=== PATIENT | female | born 2000 | race Caucasian/White ===

== ENCOUNTER 2022-12-23 11:02 | Emergency (ER) | payer SELFPAY ==
[2022-12-23] MEDS ORDERED: ACETAMINOPHEN 500 MG TAB ONE (11:57)
[2022-12-23 12:02] LABS: Absolute Lymphocytes (CBC) 1.5 K/uL (0.7-4.9); Lymphocytes % 31.1 % (15.3-44.8); MCV 87.6 fL (80-100); MPV 8.5 fL (7.6-11.3); RBC Red Blood Cell Count 4.46 M/uL (3.86-4.86)
[2022-12-23 12:10] LABS: Specific Gravity 1.018 (1.005-1.030); Urine Bacteria 20-50 /HPF (<20); Urine Bilirubin NEGATIVE (Negative); Urine Blood 2+ (Negative); Urine Color Yellow (Yellow); Urine Glucose NEGATIVE (Negative); Urine Mucus 4+ /HPF (None Seen); Urine Protein TRACE (Negative); Urine RBC <5 /HPF (None Seen); Urine Urobilinogen Normal (Normal); Urine pH 5.5 (5.0-7.0)
[2022-12-23 12:12] LABS: Urine Clarity Cloudy (Clear)
[2022-12-23 12:21] LABS: BUN Blood Urea Nitrogen 8 mg/dL (7-18); Bicarbonate 24 mEq/L (21-32); Glomerular Filtration Rate 89 ml/min (=/>90); Glucose Level 93 mg/dL (74-106); HCG, Quantitative < 1 mIU/mL (1-3); Potassium 3.8 mEq/L (3.5-5.1); Sodium Level 141 mEq/L (136-145)
--- NOTE | 2022-12-23 13:18 | RAD REPORT ---
EXAM DESCRIPTION: US - Transvaginal OB - 12/23/2022 1:08 pm CLINICAL HISTORY: VAGINAL BLEEDING COMPARISON: No comparisons FINDINGS: Small ovoid hypoechoic structure present within the lower uterine segment measuring 4 mill imeters x 2 millimeters x 2 millimeters. The endometrium measures 4 millimeters. The uterus measures 6.3 x 2.9 x 5.2 cm. The right ovary measures 2.8 x 1.4 x 1.8 cm with volume of 3.7 cc. Left ovary was not visualized and may have been obscured by bowel gas. Vascular flow in the right ovary. IMPRESSION: No normal IUP identified. Small cystic structure in the lower uterine segment could repr esent an abnormal gestational sac in the setting of a failed first trimester . Vascular flow in the right ovary. Left ovary not visualized.
--- NOTE | 2022-12-23 13:37 | EDPHYS ---
Physician Documentation [facility] Name: Lexy Sarkar Age: 22 yrs Sex: Female : 2000 Arrival Date: 12/23/2022 Time: 11:02 Bed 16 Private MD: ED Physician Howie Quinones HPI: 12/23 11:26 This 22 yrs old Female presents to ER via Wheelchair with complaints of OB Problem (> rt 20 Weeks), Vaginal Bleeding. 11:39 Patient is a G1, P0 currently reportedly 6 weeks by dates. She states that she rt had vaginal bleeding starting today, less than a period. She reports a spotting currently. She reports a crampy lower abdominal pain. Denies other acute complaints at this time. She has not had ultrasound yet for this . Symptoms are moderate severity, no other aggravating or alleviating factors. 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 - Social history:: Smoking status: Reported history of juuling and/or vaping. - Family history:: not pertinent. ROS: 11:39 Constitutional: Negative for fever, chills, and weight loss, Neck: Negative for injury, rt pain, and swelling, Cardiovascular: Negative for chest pain, palpitations, and edema, Respiratory: Negative for shortness of breath, cough, wheezing, and pleuritic chest pain, Abdomen/GI: Negative for abdominal pain, nausea, vomiting, diarrhea, and constipation, MS/Extremity: Negative for injury and deformity, Skin: Negative for injury, rash, and discoloration, Neuro: Negative for headache, weakness, numbness, tingling, and seizure, Psych: Negative for depression, anxiety, suicide ideation, homicidal ideation, and hallucinations. 11:39 : Positive for vaginal bleeding, Negative for difficulty urinating. Exam: 11:33 Constitutional: This is a well developed, well nourished patient who is awake, alert, rt and in no acute distress. Head/Face: Normocephalic, atraumatic. Neck: Trachea midline, no thyromegaly or masses palpated, and no cervical lymphadenopathy. Supple, full range of motion without nuchal rigidity, or vertebral point tenderness. No Meningismus. Chest/axilla: Normal chest wall appearance and motion. Nontender with no deformity. No lesions are appreciated. Cardiovascular: Regular rate and rhythm with a normal S1 and S2. No gallops, murmurs, or rubs. Normal PMI, no JVD. No pulse deficits. Respiratory: Lungs have equal breath sounds bilaterally, clear to auscultation and percussion. No rales, rhonchi or wheezes noted. No increased work of breathing, no retractions or nasal flaring. Abdomen/GI: Soft, non-tender, with normal bowel sounds. No distension or tympany. No guarding or rebound. No evidence of tenderness throughout. Skin: Warm, dry with normal turgor. Normal color with no rashes, no lesions, and no evidence of cellulitis. MS/ Extremity: Pulses equal, no cyanosis. Neurovascular intact. Full, normal range of motion. Neuro: Awake and alert, GCS 15, oriented to person, place, time, and situation. Cranial nerves II-XII grossly intact. Motor strength 5/5 in all extremities. Sensory grossly intact. Cerebellar exam normal. Normal gait. Psych: Awake, alert, with orientation to person, place and time. Behavior, mood, and affect are within normal limits. Vital Signs: 11:11 BP 114 / 71; Pulse 74; Resp 18 S; Temp 97.1(TE); Pulse Ox 98% on R/A; Weight 46.72 kg aa5 (R); Height 5 ft. 0 in. (R); 12:00 BP 117 / 68; Pulse 57; Resp 18; Pulse Ox 100% on R/A; eh3 13:00 BP 126 / 74; Pulse 57; Resp 18; Pulse Ox 100% on R/A; eh3 11:11 Body Mass Index 20.12 (46.72 kg, 152.4 cm) aa5 MDM: 11:14 Patient medically screened. rt 16:01 Differential diagnosis: Complete AB, incomplete AB, implantation bleeding, ectopic. rt Data reviewed: vital signs, nurses notes, lab test result(s), radiologic studies. I considered the following discharge prescriptions or medication management in the emergency department Medications were administered in the Emergency Department. See MAR. Counseling: I had a detailed discussion with the patient and/or guardian regarding: the historical points, exam findings, and any diagnostic results supporting the discharge/admit diagnosis, lab results, radiology results, the need for outpatient follow up, to return to the emergency department if symptoms worsen or persist or if there are any questions or concerns that arise at home. 12/23 11:20 Order name: Abo/rh Typing; Complete Time: 12:31 rt 12/23 11:20 Order name: Basic Metabolic Panel; Complete Time: 12:31 rt 12/23 11:20 Order name: CBC with Diff; Complete Time: 12:31 rt 12/23 11:20 Order name: Quantitative Hcg; Complete Time: 12:31 rt 12/23 11:20 Order name: Urinalysis w/ reflexes; Complete Time: 12:31 rt 12/23 12:39 Order name: Test, Urine EDMS 12/23 12:32 Order name: Transvaginal OB; Complete Time: 13:21 EDMS 12/23 11:20 Order name: IV Saline Lock; Complete Time: 11:45 rt 12/23 11:20 Order name: Labs collected and sent; Complete Time: 11:45 rt 12/23 11:20 Order name: NPO; Complete Time: 11:34 rt Administered Medications: 11:45 Drug: Acetaminophen PO 1000 mg Route: PO; [facility] 12:45 Follow up: Response: No adverse reaction eh3 Point of Care Testing: Urine : 13:38 hCG Reading: Negative; eh3 Disposition Summary: 12/23/22 13:37 Discharge Ordered Location: Home rt Problem: new rt Symptoms: are unchanged rt Condition: Stable rt Diagnosis - Incomplete spontaneous without complication rt - UTI/ Urinary tract infection, site not specified rt Followup: rt - With: Private Physician - When: 5 - 6 days - Reason: Discharge Instructions: - Discharge Summary Sheet rt - Urinary Tract Infection, Adult rt - Miscarriage, [id number] rt Forms: - Medication Reconciliation Form rt - Thank You Letter rt - Antibiotic Education rt - Prescription Opioid Use rt - Patient Portal Instructions rt Prescriptions: - Macrobid 100 mg Oral Capsule - take 1 capsule by ORAL route every 12 hours for 7 days; 14 capsule; Refills: 0, rt Product Selection Permitted Signatures: Dispatcher [employer] Anne Stack, RN RN aa5 Moraima Lezama, VICKI RN eh3 Howie Quinones MD MD rt Corrections: (The following items were deleted from the chart) 12: 11:21 OB Limited+US.RAD.BRZ ordered. EDMS EDMS :37 11:21 Test, Urine+UC.LAB.BRZ ordered. EDMS EDMS 12:31 Test, Urine+UC.LAB.BRZ reviewed. rt EDMS 12:33 Test, Urine+UC.LAB.BRZ reviewed. rt EDMS
--- NOTE | 2022-12-23 13:37 | ER ---
Nurse's Notes [facility] Name: Lexy Sarkar Age: 22 yrs Sex: Female : 2000 Arrival Date: 12/23/2022 Time: 11:02 Bed 16 Private MD: Diagnosis: Incomplete spontaneous without complication;UTI/ Urinary tract infection, site not specified Presentation: 12/23 11:11 Chief complaint: Patient states: Approximately 6 weeks , reports vaginal aa5 bleeding began this morning. 11:11 Coronavirus screen: At this time, the client does not indicate any symptoms associated aa5 with coronavirus-19. Ebola Screen: Patient denies travel to an Ebola-affected area in the 21 days before illness onset. Initial Sepsis Screen: Does the patient meet any 2 criteria? No. Patient's initial sepsis screen is negative. Does the patient have a suspected source of infection? No. Patient's initial sepsis screen is negative. Risk Assessment: Do you want to hurt yourself or someone else? Patient reports no desire to harm self or others. Onset of symptoms was December 23, 2022. 11:11 Acuity: CHAVA 3 aa5 11:11 Method Of Arrival: Wheelchair aa5 Triage Assessment: 11:15 General: Appears in no apparent distress. comfortable, Behavior is cooperative, eh3 appropriate for age. 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 - Social history:: Smoking status: Reported history of juuling and/or vaping. - Family history:: not pertinent. Screenin:15 [facility] ED Fall Risk Assessment (Adult) Score/Fall Risk Level 0 - 2 = Low Risk. Abuse eh3 screen: Denies threats or abuse. Denies injuries from another. Nutritional screening: No deficits noted. Tuberculosis screening: No symptoms or risk factors identified. Assessment: 11:15 Obstetrical Assessment: General assessment: awake and alert, skin warm and dry, eh3 respirations even and unlabored. Pain: Denies pain. Neuro: Oriented to person, place, time, situation. Cardiovascular: Capillary refill < 3 seconds. Respiratory: Airway is patent. GI: Abdomen is round non-distended. : Reports vaginal bleeding that is bright red, heavy flow. Derm: Skin is intact, is healthy with good turgor. Musculoskeletal: Circulation, motion, and sensation intact. Range of motion: intact in all extremities. 12:00 Reassessment: Patient appears in no apparent distress at this time. Patient and/or eh3 family updated on plan of care and expected duration. Pain level reassessed. Patient is alert, oriented x 3, equal unlabored respirations, skin warm/dry/pink. 13:00 Reassessment: Patient appears in no apparent distress at this time. Patient and/or eh3 family updated on plan of care and expected duration. Pain level reassessed. Patient is alert, oriented x 3, equal unlabored respirations, skin warm/dry/pink. Vital Signs: 11:11 BP 114 / 71; Pulse 74; Resp 18 S; Temp 97.1(TE); Pulse Ox 98% on R/A; Weight 46.72 kg aa5 (R); Height 5 ft. 0 in. (R); 12:00 BP 117 / 68; Pulse 57; Resp 18; Pulse Ox 100% on R/A; eh3 13:00 BP 126 / 74; Pulse 57; Resp 18; Pulse Ox 100% on R/A; eh3 11:11 Body Mass Index 20.12 (46.72 kg, 152.4 cm) aa5 Vitals: 13:38 Heart Tones N/A. eh3 ED Course: 11:05 Patient arrived in ED. ts1 11:08 Howie Quinones MD is Attending Physician. rt 11:11 Arm band placed on. aa5 11:13 Triage completed. aa5 11:15 Patient has correct armband on for positive identification. Bed in low position. Call 3 light in reach. Side rails up X2. Adult w/ patient. Provided Education on: N/A. Pulse ox on. NIBP on. Door closed. Noise minimized. Lights dimmed. Warm blanket given. 11:34 Moraima Lezama, VICKI is Primary Nurse. eh3 11:40 Inserted saline lock: 20 gauge in left antecubital area, using aseptic technique. Blood eh3 collected. 13:10 Transvaginal OB In Process Unspecified. EDMS 13:38 No provider procedures requiring assistance completed. IV discontinued, intact, eh3 bleeding controlled, No redness/swelling at site. Pressure dressing applied. Administered Medications: 11:45 Drug: Acetaminophen PO 1000 mg Route: PO; 3 12:45 Follow up: Response: No adverse reaction eh3 Medication: 13:38 VIS not applicable for this client. eh3 Point of Care Testing: Urine : 13:38 hCG Reading: Negative; 3 Outcome: 13:37 Discharge ordered by . rt 13:39 Discharged to home ambulatory, with friend. eh3 13:39 Condition: stable 13:39 Discharge instructions given to patient, Instructed on discharge instructions, follow up and referral plans. medication usage, Demonstrated understanding of instructions, follow-up care, medications, Prescriptions given X 1. 13:59 Patient left the ED. 3 Signatures: Dispatcher [employer] Anne Hough RN RN aa5 Moraima Lezama RN RN eh3 Howie Quinones MD MD rt Farhana Burdick PAS PAS ts1 Corrections: (The following items were deleted from the chart) 11:12 11:12 LMP 11/10/2022 aaJenn [email or web address] 13:38 13:37 General: Appears in no apparent distress. comfortable, eh3 eh3
[2022-12-23 14:04] LABS: Specific Gravity 1.018 (1.005-1.030)
[2022-12-23 16:13] VITALS: TEMP 97.1
[2022-12-23 16:14] VITALS: O2SAT 100
[2022-12-23 16:28] VITALS: BP 126/74
== END 2022-12-23 13:59 | disposition home or self-care (01) ==
LOC: ER 11:02
DX: O03.4 Incomplete spontaneous abortion without complication (principal); N39.0 Urinary tract infection, site not specified
CPT/HCPCS: 36415; 76817; 80048; 81001; 81025; 84702; 85025; 86900; 86901; 99284